=== PATIENT | male | born 1950 | race Caucasian/White ===

== ENCOUNTER → 2017-03-28 | Outpatient (CLI) | payer OTHER, BC ==
[~2017-03-28] VITALS: Ht 177.8 cm; Wt 83.9 kg
[~2017-03-28] MED LIST: AMBIEN 5 MG TABL5 M1 PO; AMITRIPTYLINE H10 M3 PO; ASPIR 8181 MG PO; AVAPRO300 MG PO; CARISOPRODOL 3350 MG PO; CELEBREX 200 M200 M1 PO; CRESTOR10 MG PO; IMDUR 60 MG TAB60 M1 PO; OXYCODONE HCL15 MG PO; PLAVIX 75 MG TA75 M1 PO; PROTONIX40 M4 PO; RANEXA1000 MG PO; SINGULAIR 10 MG10 M1 PO; TOPROL XL25 MG PO; VITAMIN D350000 UNIT PO
--- NOTE | ~2017-03-28 | EKG ---
[place] [address] [facility] [place] [employer] [place] [address] ELECTROCARDIOGRAM REPORT Name: ALDEN ARTEAGA KEARA Room #: REG [facility]#: [id number] Admission: 03/28/17 Attend Phys: Anil Putnma MD, Discharge: Date of : 48 Report #: [id number] THIS REPORT FOR: //name// [facility] Test Date: 2017-03-28 Test Time: 07:01:14 Pat Name: ALDEN ARTEAGA Department: Room: Gender: M Transportation Equipment Painter: Iglesia ACOSTA : 1950 Requested By: Anil Putnam Order Number: [id number] MD: Bari Mcgowan Measurements Intervals [place] Rate: 60 P: 36 NM: 160 QRS: -24 QRSD: 93 T: 8 QT: 412 QTc: 412 Interpretive Statements Sinus rhythm Inferior infarct, old No previous ECG available for comparison Electronically Signed On 03-29-2017 7:46:35 CDT by Bari Mcgowan [email or web address] <ELECTRONICALLY SIGNED> By: Bari Mcgowan MD, [facility] 03/29/17 0746 0701 0 Bari Mcgowan MD, FACC /EPI
--- NOTE | ~2017-03-28 | CATHLAB ---
[facility] [employer] [place] [address] INVASIVE PROCEDURE REPORT Name: ALDEN ARTEAGA Room #: REG [facility]#: [id number] Admission: 03/28/17 Attend Phys: Anil Putnam, Discharge: Date of : 48 Date of Service: 03/29/17 1427 Report #: [id number] THIS REPORT FOR: //name// APPROVED REPORT Patient Details Patient Status: Out-Patient Room #: The patient is a 67 year-old male Event Personnel Anil Putnam Veneer Sample Maker, Lolita Levy RN RN, Priscilla Schmitt Sandifer, David Monitor, Elizabeth Stuart Monitor Procedures Performed Left Heart Cath w/or w/o Coronaries [id number] [facility] Procedure Narrative The Right Groin^ was infiltrated with subcutaneous anesthesia. A PINNACLE 6FR Sheath #[id number] sheath was inserted into the RFA^. Coronary angiography was performed using coronary diagnostic catheters. The right coronary system was accessed and visualized with a 3DRC catheter. The left coronary system was accessed and visualized with a JL4 catheter. The left ventricle was accessed and visualized with a PIGTAIL catheter. An aortogram of the abdominal aorta was performed. Hemostasis was obtained with manual pressure following sheath removal without any complications. The patient tolerated the procedure well and there were no complications associated with the procedure. There was no hematoma. Intraoperative Conscious Sedation Sedation start time: 8:11 Case end Time: 8:43 Fentanyl 25.0 mcg Versed 2.0 mg Fluoro Time: 12.24 minutes Dose: 1179 mGy Contrast Type and Amount: Omnipaque 185 ml Hemodynamics The aortic pressure is 150/60 mmHg with a mean of 91 mmHg. The left ventricular pressure is 160/12 mmHg with a mean of mmHg. The left ventricular end diastolic pressure is 31 mmHg. Conclusion [facility] [place] [address] [place] [address] INVASIVE PROCEDURE REPORT Name: ALDEN ARTEAGA KEARA Room #: REG [facility]#: [id number] Admission: 03/28/17 Attend Phys: Anil Putnam, Discharge: Date of : 48 Date of Service: 03/29/17 1427 Report #: [id number] #1 normal left ventricular size and systolic function EF 55-60% #2 left main free of disease moderate size. Giving rise to LAD and circumflex #3 LAD is moderately diseased moderate caliber extensive the apex diffusely disease her submitted LAD stent which has minimal restenosis. #4 circumflex marginal nondominant proximal calcification 4050% eccentric long OM lesions. Not flow limiting #5 dominant right with ostial and proximal stents placed mild in-stent restenosis moderate disease in the distal third giving rise to relatively small PDA MALACHI system. Although anatomically dominant #6 abdominal aorta is intact without aneurysm. Right iliac stent mild restenosis in the left external iliac with an eccentric lesion of 40% #7 moderate common femoral disease 4050% with an SFA extensively calcified with mild to moderate plaquing throughout although not flow limiting #8 below knee segment left lower extremity three-vessel runoff with moderate disease : #9 30 percent right common femoral artery and moderate diffuse calcification throughout the right SFA not high-grade moderately calcified giving rise to three-vessel runoff #10 three-vessel runoff right lower extremity was moderate disease #11 abdominal aorta is intact without aneurysm single renal arteries are patent Recommendations and plan continue aggressive risk factor modification no lifting for 48 hours Tub Jacuzzi or Haque for a week and there is no indication for coronary or peripheral intervention. We will follow-up with periodic stress testing and lower extremity Dopplers. Follow-up visit with myself in 6 months <ELECTRONICALLY SIGNED> By: Anil Putnam MD, [facility] 03/29/17 1427 142 142 Anil Putnam MD, FACC /INF
[2017-03-28 07:13] LABS: HEMATOCRIT 39.9 % (42.0-52.0); HEMOGLOBIN 13.9 gm/dL (14.0-18.0); MCH 33.2 pg (26.0-34.0); MCHC 34.7 g/dL (28.0-37.0); MCV 95.7 fL (80.0-100.0); RBC 4.17 mil/uL (4.50-6.00); RDW 12.6 % (10.5-14.5); WBC 5.7 thou/uL (4.0-11.0)
[2017-03-28 07:18] VITALS: BP 122/73
[2017-03-28 07:22] LABS: CALCIUM 9.2 mg/dL (8.5-10.1); CREATININE 1.1 mg/dL (0.7-1.3); POTASSIUM 4.2 mmol/L (3.5-5.1)
== END ==
LOC: CATH 03-20 13:24
PROVIDERS: Internal Medicine Cardiovascular Disease
DX: I25.10 Atherosclerotic heart disease of native coronary artery without angina pectoris (principal); I10 Essential (primary) hypertension; E78.00 Pure hypercholesterolemia, unspecified; I73.9 Peripheral vascular disease, unspecified; N52.8 Other male erectile dysfunction; M19.90 Unspecified osteoarthritis, unspecified site; G47.09 Other insomnia; K21.9 Gastro-esophageal reflux disease without esophagitis; Z82.49 Family history of ischemic heart disease and other diseases of the circulatory system; Z79.899 Other long term (current) drug therapy